=== PATIENT | female | born 2000 | race American Indian/Alaskan Native ===

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

== ENCOUNTER 2021-05-20 15:49 | Emergency (ER) | payer OTHER | END 2021-05-20 18:00 | disposition left against medical advice (07) | LOC: ED 15:49 | DX: A64 Unspecified sexually transmitted disease (principal); Z53.21 Procedure and treatment not carried out due to patient leaving prior to being seen by health care provider ==

== ENCOUNTER 2021-09-18 06:01 | Emergency (ER) | payer OTHER ==
[2021-09-18] MEDS ORDERED: ACETAMINOPHEN 500 MG TAB PO ONE (07:06)
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
--- NOTE | 2021-09-18 07:53 | Ultrasound Report ---
Of the ultrasound INDICATION: Vaginal bleeding FINDINGS: There is a single live intrauterine . Gestational sac measures 16 mm measuring 12 weeks 1 day. Comment length 56.5 mm measuring 12 weeks 2 days. Ultrasound age 12 weeks 2 days. heart rate 1 54 bpm. pole is noted. Body limb movements identified. No free fluid. Intrauterine . Uterus measures 10.5 x 6.1 x 8.0 cm. IMPRESSION: Single live intrauterine measuring 12 weeks 2 days by ultrasound. Signer Name: Sam Flores MD Signed: 09/18/2021 7:49 AM Workstation Name: [id number]
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
[2021-09-18 09:17] LABS: Basophils % (Auto) 0.6 % (0.0-1.8); Eosinophils # (Auto) 0.1 K/mm3 (0.0-0.4); Eosinophils % (Auto) 0.8 % (0.0-4.3); Hematocrit 34.8 % (30.3-42.9); Hemoglobin 11.8 gm/dl (10.1-14.3); Lymphocytes # (Auto) 1.3 K/mm3 (1.2-5.4); Lymphocytes % (Auto) 17.5 % (13.4-35.0); Mean Corpuscular HGB Conc 34 % (30-34); Mean Corpuscular Volume 89 fl (79-97); Monocytes # (Auto) 0.4 K/mm3 (0.0-0.8); Monocytes % (Auto) 5.8 % (0.0-7.3); Platelet Count 315 K/mm3 (140-440); Red Blood Count 3.91 M/mm3 (3.65-5.03); Red Cell Distribution Width 13.4 % (13.2-15.2)
[2021-09-18 10:57] VITALS: BP 101/47
== END 2021-09-18 10:56 | disposition home or self-care (01) ==
LOC: ED 06:01
DX: O9A.311 Physical abuse complicating pregnancy, first trimester (principal); O20.0 Threatened abortion; O9A.211 Injury, poisoning and certain other consequences of external causes complicating pregnancy, first trimester; S00.83XA Contusion of other part of head, initial encounter; Z3A.11 11 weeks gestation of pregnancy; J45.909 Unspecified asthma, uncomplicated; Z91.010 Allergy to peanuts; Z91.018 Allergy to other foods; Z88.8 Allergy status to other drugs, medicaments and biological substances; Y04.8XXA Assault by other bodily force, initial encounter; Y93.89 Activity, other specified; Y92.89 Other specified places as the place of occurrence of the external cause; Y99.8 Other external cause status
CPT/HCPCS: 36415; 70486; 76801; 84702; 85025; 86900; 86901; 99284